=== PATIENT | male | born 1990 | race Caucasian/White ===

== ENCOUNTER 2023-08-17 06:36 | Emergency (ER) | payer OTHER ==
[~2023-08-17] VITALS: Ht 175.3 cm; Wt 63.5 kg
[2023-08-17 06:39] VITALS: BP 130/71; PULSE 82; RESP 16; TEMP 97.7; O2SAT 100
[2023-08-17] MEDS ORDERED: OLANZapine 5 MG ODT PO ONE (07:00)
[2023-08-17] MEDS ORDERED: OLAN7.5T1 PO (07:13)
[2023-08-17 07:34] VITALS: BP 130/71; PULSE 82; RESP 16; TEMP 97.7; O2SAT 100
== END 2023-08-17 07:34 | disposition home or self-care (01) ==
LOC: MED 06:36 → EDBD 06:36 → MED 07:34
DX: G47.00 Insomnia, unspecified (principal); T50.995A Adverse effect of other drugs, medicaments and biological substances, initial encounter; J06.9 Acute upper respiratory infection, unspecified; Z79.899 Other long term (current) drug therapy; Z88.8 Allergy status to other drugs, medicaments and biological substances; Y92.89 Other specified places as the place of occurrence of the external cause
CPT/HCPCS: 99283